=== PATIENT | female | born 1970 | race American Indian/Alaskan Native ===

== ENCOUNTER 2021-01-21 09:28 | Inpatient (IN) | payer OTHER ==
[2021-01-21] MEDS ORDERED: ACETAMINOPHEN 500 MG TAB PO ONE (10:58)
--- NOTE | 2021-01-21 11:00 | Emergency Department Report ---
Blank Doc - Documentation Documentation: 50-year-old female that presents with generalized weakness, body aches and hea dache. Fever tachycardia in triage. 1- This is a initial triage assessment/medical screening only. Full assessment and work-up will be completed once the patient is in proper hospital gown, ED bed and in a private room setting. This initial assessment/diagnostic orders/clinical plan/ treatment(s) is/are subject to change based on pt's health status, clinical progression and re-assessment by fellow clinical providers in the ED. Further treatment and workup at subsequent clinical providers discretion. Patient/guardians urged not to elope from ED as their condition may be serious if not clinically assessed and managed. 2-sepsis work-up initiated
[2021-01-21 12:07] LABS: Basophils % (Auto) 0.8 % (0.0-1.8); Eosinophils % (Auto) 0.2 % (0.0-4.3); Hematocrit 39.6 % (30.3-42.9); Hemoglobin 13.4 gm/dl (10.1-14.3); Lymphocytes % (Auto) 27.4 % (13.4-35.0); Mean Corpuscular HGB Conc 34 % (30-34); Mean Corpuscular Volume 80 fl (79-97); Monocytes # (Auto) 0.5 K/mm3 (0.0-0.8); Red Blood Count 4.92 M/mm3 (3.65-5.03); Red Cell Distribution Width 14.2 % (13.2-15.2)
[2021-01-21 12:45] LABS: Alanine Aminotransferase 42 units/L (7-56); Albumin 3.7 g/dL (3.9-5); BUN/Creatinine Ratio 14; Blood Urea Nitrogen 11 mg/dL (7-17); Calcium 9.5 mg/dL (8.4-10.2); Hemolysis Index 41
[2021-01-21 13:15] LABS: Platelet Count 39 K/mm3 (140-440)
--- NOTE | 2021-01-21 13:30 | XRay Report ---
CHEST 2 VIEWS INDICATION: sepsis. COMPARISON: FINDINGS: Support devices: None. Heart: Within normal limits. Lungs: No acute air space or interstitial disease. Pleura: No significant pleural effusion. No pneumothorax. Additional findings: None. IMPRESSION: 1. No acute findings. Signer Name: Angelo Enriquez MD Signed: 01/21/2021 1:25 PM Workstation Name: [id number]
--- NOTE | 2021-01-21 13:31 | Cat Scan Report ---
CT BRAIN: 01/21/2021 INDICATION / CLINICAL INFORMATION: headache. COMPARISON: None available. FINDINGS: BRAIN/INTRACRANIAL STRUCTURES: Unenhanced CT images of the brain were obtained. There is no evidence of acute abnormality. Ventricles and sulci are normal in size and shape. There is no evidence of acute ischemic injury, hemorrhage, or mass. There are no abnormal extra-axial fluid collections. EXTRACRANIAL STRUCTURES: Unremarkable. IMPRESSION: No acute abnormality. All CT scans at this location are performed using dose reduction to ALARA by means of automated expos ure control. Signer Name: Dave Riddle MD Signed: 01/21/2021 1:27 PM Workstation Name: [id number]
[2021-01-22] MEDS ORDERED: SODIUM CHLORIDE 0.9% 1000 ML 1,000 ML IV ONE (02:53)
--- NOTE | 2021-01-22 02:57 | Emergency Department Report ---
ED General Adult HPI - General Chief complaint: Weakness Stated complaint: SICK Time Seen by Provider: 01/21/21 10:09 Source: patient Mode of arrival: Ambulatory Limitations: No Limitations - History of Present Illness Initial comments: 50-year-old female patient with history of hypertension presents to emergency department with complaints of headache, myalgias, dizziness, and generalized weakness starting five days ago. Patient states she recently traveled to the [facility] [place] from [place], arriving in [place] on January 11. Symptoms did not begin until after her arrival. Patient has been compliant with her antihypertensive medication regimen. States she completed a partial malaria vaccine series at some point prior to departing for the [facility]. No known sick contacts. No known recent insect envenomations. Denies syncope, seizure, nausea, vomiting, diarrhea, abdominal pain, rash, abnormal bleeding/bruising. Denies all other complaints at this time. Severity scale (0 -10): 2 - Related Data Allergies Allergy/AdvReac Type Severity Reaction Status Date / Time Unable to Assess Allergy Unverified 01/21/21 10:01 ED Review of Systems ROS: Stated complaint: SICK Other details as noted in HPI Other: GENERAL: Positive for decreased appetite, fatigue, generalized weakness. ENT: Negative for ear pain, difficulty hearing, sore throat, nasal congestion, epistaxis. CARDIOVASCULAR: Negative for chest pain, palpitations, lower extremity swelling. PULMONARY: Negative for cough, dyspnea, wheezing, orthopnea, cyanosis. GASTROINTESTINAL: Negative for abdominal pain, nausea, vomiting, diarrhea, constipation. MUSCULOSKELETAL: Positive for myalgias. NEUROLOGICAL: Positive for headache and dizziness. INTEGUMENTARY: Negative for erythema, rash, diaphoresis, laceration, ecchymosis. HEMATOLOGICAL: Negative for hemoptysis, hematemesis, hematochezia, hematuria. PSYCHIATRIC: Negative for hallucinations, suicidal ideation, homicidal ideation, anxiety, depression. ED Past Medical Hx - Past Medical History Previous Medical History?: Yes Hx Hypertension: Yes - Surgical History Past Surgical History?: No ED Physical Exam - General Limitations: No Limitations - Other Other exam information: General: Awake and alert. No acute distress. Appears fatigued. Head: Atraumatic, normocephalic. Eyes: EOMI. Pupils are equal and round. Normal sclera and conjunctiva. ENT: Oral mucosa is moist. Normal pharyngeal exam. Neck: Supple. No lymphadenopathy. Pulmonary: No respiratory distress. Clear to auscultation bilaterally. Cardiac: Tachycardic. Pulses are palpable and equal bilaterally. No lower extremity cyanosis or edema. Skin: Warm and dry. No rashes. Abdomen: Soft, non-tender, non-protuberant. No guarding, rigidity, or rebound. Bowel sounds are normal. No organomegaly or masses noted. Back: Normal alignment. No CVA tenderness. Extremities: Symmetrical. Full range of motion intact. Neurological: Alert and oriented, appropriately interactive, no focal deficits. Psych: Cooperative. Appropriate mood and affect. Speech is evenly metered. Thoughts are logically construed. ED Course Vital Signs 01/21/21 01/22/21 10:00 05:07 Temperature 100.0 F H 103.1 F H Pulse Rate 114 H 102 H Respiratory 14 18 Rate Blood Pressure 108/80 Blood Pressure 148/73 [Left] O2 Sat by Pulse 99 98 Oximetry ED Medical Decision Making - Lab Data Result diagrams: 01/21/21 11:16 01/21/21 11:16 - EKG Data 01/22/21 04:32 EKG shows sinus tachycardia with a ventricular rate of 108 bpm. Normal axis. Normal [place] interval. Normal QT interval. Good R wave progression. No ST segment changes. Over read by attending emergency physician, who agrees with this interpretation. - Medical Decision Making Differential diagnosis including but not limited to: dehydration, electrolyte abnormality, hypoglycemia, anemia, pneumonia, malaria, sepsis, dengue fever, Ebola virus, Q fever, Zika virus, rickettsial disease, mononucleosis On reevaluation, patient continues to exhibit fever and tachycardia. Tylenol ordered. IV fluids in progress. Labs significant for thrombocytopenia, le ukopenia, and hyponatremia. Schistocytes detected on peripheral blood smear. Blood parasite smear is pending. Urine is very dark in appearance; IV Rocephin administered due to presence of pyuria and leukocyte esterase. Blood and urine culture pending. Lactic acid and coagulation panel within normal limits. LDH and ESR elevated. CXR and CT head negative. Broad infectious disease differential must be considered in this febrile tachycardic patient due to her recent travel history and unexplained laboratory abnormalities. Patient will benefit from further evaluation and specialist consultation (i.e. infectious disease, hematology) on an inpatient basis. Case discussed with Dr. Islas, hospitalist, who agrees to admit and requests infectious disease consultation, which was subsequently initiated. Critical care attestation.: If time is entered above; I have spent that time in minutes in the direct care of this critically ill patient, excluding procedure time. ED Disposition Clinical Impression: Thrombocytopenia, Schistocytosis, Febrile illness Disposition: OP ADMIT IP TO THIS HOSP Is pt being admited?: Yes Condition: Serious Time of Disposition: 06:45
[2021-01-22 03:18] LABS: Bilirubin,Urine NEG (Negative); Blood,Urine SM (Negative); Color,Urine Amber (Yellow); Hyaline Casts,Urine 1 /LPF; Mucus,Urine 2+ /HPF
[2021-01-22] MEDS ORDERED: ACETAMINOPHEN 500 MG TAB PO ONE (03:44)
[2021-01-22 03:51] LABS: INR 1.13 (0.87-1.13)
[2021-01-22 03:52] LABS: Partial Thromboplastin Time 29.2 Sec. (24.2-36.6)
[2021-01-22] MEDS ORDERED: LIDOCAINE-MPF (1%) 10 MG/1 ML VIAL 5 ML INFILTRATI ONE (05:19)
[2021-01-22] MEDS ORDERED: cefTRIAXone/NS 1 GM/50 ML 1 GM/50 ML BAG IV ONE (06:00)
[2021-01-22 06:39] LABS: Erythrocyte Sedimentation Rate 46 mm/Hr (0-20)
--- NOTE | 2021-01-22 08:06 | History and Physical Report ---
History of Present Illness Date of examination: 01/22/21 Date of admission: 01/22/21 06:51 Chief complaint: High fever, generalized weakness, headache and dizziness for the last 5 days History of present illness: 50-year-old morbidly obese -[place] female with significant past medical history of hypertension presented to the emergency room with high fever headache dizziness myalgias and generalized weakness 5 days duration . patient [place] from [place] arrived in [place] on January 11. Asymptomatic prior to January 11 noticed generalized weakness fever headache dizziness and body pains . Symptoms were worse since last night, presented to the emergency room this morning to the emergency room for further evaluation and management. Patient's temperature was 103F, initial evaluation is consistent with sepsis. Patient gives history of not completing malaria vaccine series prior to leaving [facility]. Chest x-ray negative for acute abnormalities CT head, no acute findings blood smears positive for schistocytes and mononucleosis HIV test negative. Work-up is consistent with hyponatremia thrombocytopenia hyperglycemia and monocytosis Mononucleosis screen is negative.Patient denies nausea vomiting or abdominal pain. Denies chest pain or shortness of breath Denies any sick contacts. Past History Past Medical History: hypertension. denies: diabetes Past Surgical History: No surgical history Social history: denies: smoking, alcohol abuse, prescription drug abuse Family history: no significant family history Medications and Allergies Allergies Allergy/AdvReac Type Severity Reaction Status Date / Time chloroquine Allergy Itching Verified 01/22/21 14:35 Home Medications Medication Instructions Recorded Confirmed Last Taken Type amLODIPine 5 mg PO DAILY 01/22/21 01/22/21 01/21/21 History Review of Systems Constitutional: fever, chills, weakness, no weight loss, no weight gain Ears, nose, mouth and throat: no nasal congestion, no nasal discharge Cardiovascular: no chest pain, no orthopnea Respiratory: no cough, no shortness of breath Gastrointestinal: no abdominal pain, no nausea, no vomiting Genitourinary Female: no dysuria, no hematuria Musculoskeletal: no myalgias, no arthritis Integumentary: no rash, no lesions Neurological: weakness, headaches, no numbness Psychiatric: no anxiety, no depression Endocrine: no cold intolerance, no heat intolerance Hematologic/Lymphatic: no easy bruising, no easy bleeding Allergic/Immunologic: no urticaria, no allergic rhinitis Exam - Constitutional Vitals: Temp Pulse Resp BP Pulse Ox 103.1 F H 102 H 18 148/73 98 01/22/21 05:07 01/22/21 05:07 01/22/21 05:07 01/22/21 05:07 01/22/21 05:07 General appearance: Present: no acute distress, well-nourished, obese (Morbidly obese) - EENT Eyes: Present: PERRL, EOM intact - Neck Neck: Present: supple, normal ROM - Respiratory Respiratory effort: normal Respiratory: bilateral: diminished, negative: rales, rhonchi, wheezing - Cardiovascular Rhythm: regular Heart Sounds: Present: S1 & S2 - Extremities Extremities: no ischemia, No edema - Abdominal General gastrointestinal: Present: soft, non-tender, non-distended, normal bowel sounds - Integumentary Integumentary: Present: clear, warm - Musculoskeletal Musculoskeletal: strength equal bilaterally, generalized weakness - Psychiatric Psychiatric: appropriate mood/affect, cooperative - Neurologic Neurologic: CNII-XII intact, moves all extremities HEART Score - HEART Score Troponin: Troponin T < 0.010 ng/mL (0.00-0.029) 01/21/21 11:16 Results - Labs CBC & Chem 7: 01/21/21 11:16 01/21/21 11:16 Labs: Abnormal lab results 01/21/21 01/21/21 01/22/21 Range/Units 11:16 11:16 03:03 WBC 3.7 L (4.5-11.0) K/mm3 MCH 27 L (28-32) pg Plt Count 39 L (140-440) K/mm3 [place] % (Auto) 13.0 H (0.0-7.3) % Lymph # (Auto) 1.0 L (1.2-5.4) K/mm3 PT (12.2-14.9) Sec. Sodium 130 L (137-145) mmol/L Chloride 88.4 L (98-107) mmol/L Carbon Dioxide 34 H (22-30) mmol/L Glucose 153 H (65-100) mg/dL Total Bilirubin 1.40 H (0.1-1.2) mg/dL Lactate Dehydrogenase (91-180) units/L Albumin 3.7 L (3.9-5) g/dL Urine WBC (Auto) 11.0 H (0.0-6.0) /HPF 01/22/21 01/22/21 Range/Units 03:10 05:41 WBC (4.5-11.0) K/mm3 MCH (28-32) pg Plt Count (140-440) K/mm3 [place] % (Auto) (0.0-7.3) % Lymph # (Auto) (1.2-5.4) K/mm3 PT 15.1 H (12.2-14.9) Sec. Sodium (137-145) mmol/L Chloride (98-107) mmol/L Carbon Dioxide (22-30) mmol/L Glucose (65-100) mg/dL Total Bilirubin (0.1-1.2) mg/dL Lactate Dehydrogenase 809 H (91-180) units/L Albumin (3.9-5) g/dL Urine WBC (Auto) (0.0-6.0) /HPF Assessment and Plan [place] test; negative HIV 1 and 2; negative Schistocytes rare Cultures; blood; Cultures; urine; --Febrile illness; Antipyretics, IV fluids, cultures Supportive care Patient came [place] the [place] from [facility] Rule out malaria, smear sent ID consulted --Possible malaria; Follow malaria parasite smear ID recommend Malarone Supportive care --PUI; High suspicion for COVID-19 Isolation contact and droplet Rizo PCR test requested --Leukopenia; Baseline unknown, closely monitor white count Treat the underlying cause --Thrombocytopenia; Unknown baseline level. Probably due to viral Versus parasitic infection Closely monitor platelets --Monocytosis; Monocytes; 13 normal 0-7 Possible viral, parasitic infection Closely monitor --Hyponatremia; Replenished with normal saline, closely monitor electrolytes --Hyperglycemia; closely monitor blood sugars Check A1c. Sliding scale coverage if sugars are high --Possible UTI; Positive urine analysis Empiric antibiotics with Rocephin Blood and urine cultures --DVT prophylaxis; Lovenox --Morbid obesity; BMI 40.4 Diet modification exercise as tolerated and weight reduction When medically stable --Full CODE STATUS We will closely monitor the patient and adjust management as needed Follow ID evaluation and recommendations Plan of care reviewed with the patient and her nurse
[2021-01-22] MEDS ORDERED: hydrALAZINE 20 MG/1 ML INJ IV PRN (08:23)
--- NOTE | 2021-01-22 09:31 | Consultation ---
History of Present Illness - Reason for Consult Consult date: 01/22/21 - History of Present Illness 50 yo F PMHx HTN presented to the hospital complaining of headache, myalgias, and dizziness. This began approximately 5 days prior to admission. She does report that she arrived in the from [place] on January 11. Of note, she reports that she received an incomplete malaria vaccine series prior to [place] for the [place]. Febrile to 103.1, white count 3.7. Negative for HIV, schistocytes, and mo nonucleosis. She is hyperglycemic and hyponatremic. She is thrombocytopenic. Blood cultures pending. Imaging personally reviewed: CXR: No acute pneumonia. Review of Systems: Bold if positive, otherwise negative General: fevers, chills, rigors HEENT: visual disturbance, diplopia, eye pain Respiratory: cough, sputum, hemoptysis, shortness of breath Cardiovascular: chest pain, syncope Gastrointestinal: nausea, vomiting, diarrhea, abdominal pain Genitourinary: dysuria, hematuria, flank pain Musculoskeletal: neck pain, back pain, joint pain, edema Neurologic: headaches, seizures Hematologic: easy bruising or bleeding Endocrine: night sweats, acute weight loss Skin: rash, jaundice, redness Psychiatric: suicidal, homicidal ideation Medications and Allergies Allergies Allergy/AdvReac Type Severity Reaction Status Date / Time Unable to Assess Allergy Unverified 01/21/21 10:01 Active Meds: Active Medications Acetaminophen (Acetaminophen 325 Mg Tab) 650 mg PO Q4H PRN PRN Reason: Pain, Mild (1-3) Hydralazine HCl (Hydralazine 20 Mg/1 Ml Inj) 10 mg IV Q4HR PRN PRN Reason: Hypertension Sodium Chloride (Nacl 0.9% 1000 Ml) 1,000 mls @ 100 mls/hr IV DIRECT WINIFRED Ceftriaxone Sodium (Rocephin/Ns 1 Gm/50 Ml) 1 gm in 50 mls @ 100 mls/hr IV Q24HR WINIFRED; Protocol Pantoprazole Sodium (Pantoprazole 40 Mg Inj) 40 mg IV QDAY WINIFRED Last Admin: 01/22/21 09:23 Dose: 40 mg Documented by: Physical Examination - Physical Exam Narrative exam: Physical exam deferred to reduce risk of transmission of COVID-19. Please refer to primary team's note. - Constitutional Vitals: Vital Signs Temp Pulse Resp BP Pulse Ox 99.9 F H 102 H 18 148/73 98 01/22/21 08:20 01/22/21 05:07 01/22/21 05:07 01/22/21 05:07 01/22/21 05:07 Temperature -Last 24 Hours Temperature 99.9 F Temperature 103.1 F Temperature 100.0 F Results - Labs CBC & Chem 7: 01/21/21 11:16 01/21/21 11:16 Labs: Abnormal lab results 01/21/21 01/21/21 01/22/21 Range/Units 11:16 11:16 03:03 WBC 3.7 L (4.5-11.0) K/mm3 MCH 27 L (28-32) pg Plt Count 39 L (140-440) K/mm3 [place] % (Auto) 13.0 H (0.0-7.3) % Lymph # (Auto) 1.0 L (1.2-5.4) K/mm3 PT (12.2-14.9) Sec. Sodium 130 L (137-145) mmol/L Chloride 88.4 L (98-107) mmol/L Carbon Dioxide 34 H (22-30) mmol/L Glucose 153 H (65-100) mg/dL Total Bilirubin 1.40 H (0.1-1.2) mg/dL Lactate Dehydrogenase (91-180) units/L Albumin 3.7 L (3.9-5) g/dL Urine WBC (Auto) 11.0 H (0.0-6.0) /HPF 01/22/21 01/22/21 Range/Units 03:10 05:41 WBC (4.5-11.0) K/mm3 MCH (28-32) pg Plt Count (140-440) K/mm3 [place] % (Auto) (0.0-7.3) % Lymph # (Auto) (1.2-5.4) K/mm3 PT 15.1 H (12.2-14.9) Sec. Sodium (137-145) mmol/L Chloride (98-107) mmol/L Carbon Dioxide (22-30) mmol/L Glucose (65-100) mg/dL Total Bilirubin (0.1-1.2) mg/dL Lactate Dehydrogenase 809 H (91-180) units/L Albumin (3.9-5) g/dL Urine WBC (Auto) (0.0-6.0) /HPF Assessment and Plan Cultures: Blood culture01/22/2021 pending HIV: negative COVID PCR: pending Blood parasite smear: pending A/P: 50 yo F PMHx HTN, recently arrived from [place] admitted with sepsis possibly secondary to malaria. #Acute sepsis: with fevers, tachycardia. Most likely secondary to malaria given elevated bilirubin, thrombocytopenia. Patient started but did not complete a malaria vaccination trial in [place]. #Thrombocytopenia: likely secondary to sepsis and presumed malaria. Recs: -Follow up COVID PCR, though low suspicion as no pneumonia -Follow up blood aparasite smear for malaria -Will empirically start malarone given high suspicion -Continue empiric ceftriaxone for now, stopped azithromycin. Thank you for the consult, we will continue to follow. MD Abimael Arriola [facility] O: [phone] F: [phone]
[2021-01-22] MEDS ORDERED: PANTOPRAZOLE 40 MG INJ IV SCH (10:00)
[2021-01-22] MEDS: ATOVAQUONE/PROGUANIL TAB PO SCH (14:03)
[2021-01-22] MEDS ORDERED: ZOLPIDEM 5 MG TAB PO PRN (16:13)
[2021-01-22] MEDS: SODIUM CHLORIDE 0.9% 1000 ML 1,000 ML IV SCH (18:47)
[2021-01-22] MEDS: ACETAMINOPHEN 325 MG TAB PO PRN (18:57)
[2021-01-22] MEDS: ENOXAPARIN 40 MG/0.4 ML INJ SUB-Q SCH (21:55)
[2021-01-23] MEDS: SODIUM CHLORIDE 0.9% 1000 ML 1,000 ML IV SCH (08:44)
[2021-01-23] MEDS: PANTOPRAZOLE 40 MG TAB PO SCH (09:36)
[2021-01-23] MEDS ORDERED: cefTRIAXone/NS 1 GM/50 ML 1 GM/50 ML BAG IV SCH (10:00)
--- NOTE | 2021-01-23 10:04 | Progress Note ---
Assessment and Plan Assessment and plan: [place] test; negative HIV 1 and 2; negative Schistocytes rare Cultures; blood; Cultures; urine; --Febrile illness; Antipyretics, IV fluids, cultures Supportive care Patient came from out of the country from [place] Rule out malaria, smear sent ID consulted --Possible malaria; Follow malaria parasite smear ID recommend Malarone for 3 days Supportive care --PUI; High suspicion for COVID-19 Isolation contact and droplet Rizo PCR test pending --Leukopenia; worsening WBC 3.7-3.0 --Worsening thrombocytopenia; Unknown baseline level. Probably due to viral Versus parasitic infection Closely monitor platelets --Monocytosis; Monocytes; 13 normal 0-7 Possible viral, parasitic infection Closely monitor --Hyponatremia; Replenished with normal saline, closely monitor electrolytes --Hyperglycemia; closely monitor blood sugars Check A1c. Sliding scale coverage if sugars are high --Possible UTI; Positive urine analysis Empiric antibiotics with Rocephin Blood and urine cultures --DVT prophylaxis; Lovenox --Morbid obesity; BMI 40.4 Diet modification exercise as tolerated and weight reduction When medically stable --Full CODE STATUS We will closely monitor the patient and adjust management as needed ID recommendations noted and appreciated Plan of care reviewed with the patient and her nurse 01/23/2021; Patient remains febrile, T-max last 24 hours 103 F Continue Malarone for total 3 days per ID Follow cultures Follow rizo PCR test History Interval history: I have seen and examined the patient at the bedside Patient's chart and medications reviewed Patient is afebrile this morning however, T-max last 24 hours is 103 F Patient feels slightly better no new complaints Vital signs reviewed Hospitalist Physical - Constitutional Vitals: Temp Pulse Resp BP Pulse Ox 98.8 F 105 H 16 118/80 94 01/23/21 05:07 01/23/21 05:07 01/23/21 05:07 01/23/21 05:07 01/23/21 05:07 General appearance: Present: no acute distress, well-nourished, obese (Morbidly obese), other (Afebrile now/T-max last 24 hours 103 F) - EENT Eyes: Present: PERRL, EOM intact - Neck Neck: Present: supple, normal ROM - Respiratory Respiratory effort: normal Respiratory: bilateral: diminished (That was for maintenance), negative: rales, rhonchi, wheezing (Stated that is what I was talking about) - Cardiovascular Rhythm: regular Heart Sounds: Present: S1 & S2 - Extremities Extremities: no ischemia, No edema - Abdominal General gastrointestinal: soft, non-tender, non-distended, normal bowel sounds - Integumentary Integumentary: Present: clear, warm - Psychiatric Psychiatric: appropriate mood/affect, cooperative - Neurologic Neurologic: moves all extremities HEART Score - HEART Score Troponin: Troponin T < 0.010 ng/mL (0.00-0.029) 01/21/21 11:16 Results - Labs CBC & Chem 7: 01/23/21 10:31 01/21/21 11:16 Labs: Laboratory Last Values WBC 3.7 K/mm3 (4.5-11.0) L 01/21/21 11:16 RBC 4.92 M/mm3 (3.65-5.03) 01/21/21 11:16 Hgb 13.4 gm/dl (10.1-14.3) 01/21/21 11:16 Hct 39.6 % (30.3-42.9) 01/21/21 11:16 MCV 80 fl (79-97) 01/21/21 11:16 MCH 27 pg (28-32) L 01/21/21 11:16 MCHC 34 % (30-34) 01/21/21 11:16 RDW 14.2 % (13.2-15.2) 01/21/21 11:16 Plt Count 39 K/mm3 (140-440) L 01/21/21 11:16 Lymph % (Auto) 27.4 % (13.4-35.0) 01/21/21 11:16 [place] % (Auto) 13.0 % (0.0-7.3) H 01/21/21 11:16 Eos % (Auto) 0.2 % (0.0-4.3) 01/21/21 11:16 Baso % (Auto) 0.8 % (0.0-1.8) 01/21/21 11:16 Lymph # (Auto) 1.0 K/mm3 (1.2-5.4) L 01/21/21 11:16 [place] # (Auto) 0.5 K/mm3 (0.0-0.8) 01/21/21 11:16 Eos # (Auto) 0.0 K/mm3 (0.0-0.4) 01/21/21 11:16 Baso # (Auto) 0.0 K/mm3 (0.0-0.1) 01/21/21 11:16 Seg Neutrophils % 58.6 % (40.0-70.0) 01/21/21 11:16 Seg Neutrophils # 2.2 K/mm3 (1.8-7.7) 01/21/21 11:16 ESR 46 mm/Hr (0-20) 01/22/21 05:41 PT 15.1 Sec. (12.2-14.9) H 01/22/21 03:10 INR 1.13 (0.87-1.13) 01/22/21 03:10 APTT 29.2 Sec. (24.2-36.6) 01/22/21 03:10 Sodium 130 mmol/L (137-145) L 01/21/21 11:16 Potassium 3.6 mmol/L (3.6-5.0) 01/21/21 11:16 Chloride 88.4 mmol/L (98-107) L 01/21/21 11:16 Carbon Dioxide 34 mmol/L (22-30) H 01/21/21 11:16 Anion Gap 11 mmol/L 01/21/21 11:16 BUN 11 mg/dL (7-17) 01/21/21 11:16 Creatinine 0.8 mg/dL (0.6-1.2) 01/21/21 11:16 Estimated GFR > 60 ml/min 01/21/21 11:16 BUN/Creatinine Ratio 14 % 01/21/21 11:16 Glucose 153 mg/dL (65-100) H 01/21/21 11:16 Lactic Acid 1.80 mmol/L (0.7-2.0) 01/21/21 11:16 Calcium 9.5 mg/dL (8.4-10.2) 01/21/21 11:16 Magnesium 2.30 mg/dL (1.7-2.3) 01/21/21 11:16 Total Bilirubin 1.40 mg/dL (0.1-1.2) H 01/21/21 11:16 AST 40 units/L (5-40) 01/21/21 11:16 ALT 42 units/L (7-56) 01/21/21 11:16 Alkaline Phosphatase 67 units/L (35-129) 01/21/21 11:16 Lactate Dehydrogenase 809 units/L (91-180) H 01/22/21 05:41 Troponin T < 0.010 ng/mL (0.00-0.029) 01/21/21 11:16 Total Protein 7.9 g/dL (6.3-8.2) 01/21/21 11:16 Albumin 3.7 g/dL (3.9-5) L 01/21/21 11:16 Albumin/Globulin Ratio 0.9 % 01/21/21 11:16 Lipase 27 units/L (13-60) 01/21/21 11:16 HCG, Qual Negative (Negative) 01/21/21 11:16 Urine Color Chloe (Yellow) 01/22/21 03:03 Urine Turbidity Slightly-cloudy (Clear) 01/22/21 03:03 Urine pH 5.0 (5.0-7.0) 01/22/21 03:03 Ur Specific [place] 1.023 (1.003-1.030) 01/22/21 03:03 Urine Protein 100 mg/dl mg/dL (Negative) 01/22/21 03:03 Urine Glucose (UA) Neg mg/dL (Negative) 01/22/21 03:03 Urine Ketones Neg mg/dL (Negative) 01/22/21 03:03 Urine Blood Sm (Negative) 01/22/21 03:03 Urine Nitrite Neg (Negative) 01/22/21 03:03 Urine Bilirubin Neg (Negative) 01/22/21 03:03 Urine Urobilinogen 4.0 mg/dL (<2.0) 01/22/21 03:03 Ur Leukocyte Esterase Tr (Negative) 01/22/21 03:03 Urine WBC (Auto) 11.0 /HPF (0.0-6.0) H 01/22/21 03:03 Urine RBC (Auto) 4.0 /HPF (0.0-6.0) 01/22/21 03:03 U Epithel Cells (Auto) < 1.0 /HPF (0-13.0) 01/22/21 03:03 Hyaline Casts 1 /LPF 01/22/21 03:03 Urine Mucus 2+ /HPF 01/22/21 03:03 Coronavirus (PCR) Indeterminate (Negative) 01/22/21 Unknown Monoscreen Negative (Negative) 01/22/21 05:42 HIV 1&2 Antibody Rapid Non react (Non React) 01/22/21 05:41 HIV P24 Antigen Non react (Non React) 01/22/21 05:41 Schistocytes Smear Rare 01/22/21 03:10 Microbiology: Microbiology 01/21/21 11:16 Peripheral/Venous Blood Culture - Preliminary NO GROWTH AFTER 24 HOURS 01/21/21 11:16 Peripheral/Venous Blood Culture - Preliminary NO GROWTH AFTER 24 HOURS Garcia/IV: Voiding Method Toilet Active Medications - Current Medications Current Medications: Generic Name Dose Route Start Last Admin Trade Name Freq PRN Reason Stop Dose Admin Acetaminophen 650 mg 01/22/21 08:06 01/22/21 18:57 Acetaminophen 325 Mg Tab PO 650 mg Q4H PRN Administration Pain, Mild (1-3) Atovaquone/Proguanil 4 each 01/22/21 12:00 01/22/21 14:03 Atovaquone/Proguanil Tab PO 01/24/21 10:01 4 each DAILY WINIFRED Administration Enoxaparin Sodium 40 mg 01/22/21 22:00 01/22/21 21:55 Enoxaparin 40 Mg/0.4 Ml Inj SUB-Q 40 mg QDAY@2200 WINIFRED Administration Protocol Hydralazine HCl 10 mg 01/22/21 08:23 Hydralazine 20 Mg/1 Ml Inj IV Q4HR PRN Hypertension Sodium Chloride 1,000 mls @ 100 mls/hr 01/22/21 08:15 01/23/21 08:44 Nacl 0.9% 1000 Ml IV 100 mls/hr DIRECT WINIFRED Administration Ceftriaxone Sodium 1 gm in 50 mls @ 100 mls/hr 01/23/21 10:00 01/23/21 09:34 Rocephin/Ns 1 Gm/50 Ml IV 100 mls/hr Q24HR WINIFRED Administration Protocol Pantoprazole Sodium 40 mg 01/23/21 09:00 01/23/21 09:36 Pantoprazole 40 Mg Tab PO 40 mg QDAC WINIFRED Administration Zolpidem Tartrate 5 mg 01/22/21 16:13 Zolpidem 5 Mg Tab PO QHS PRN Sleep
[2021-01-23 11:04] LABS: Hematocrit 32.5 % (30.3-42.9); Mean Corpuscular HGB Conc 34 % (30-34); Mean Corpuscular Volume 80 fl (79-97); Red Blood Count 4.07 M/mm3 (3.65-5.03); Red Cell Distribution Width 14.5 % (13.2-15.2)
[2021-01-23 11:05] LABS: Platelet Count 24 K/mm3 (140-440)
[2021-01-23] MEDS: ATOVAQUONE/PROGUANIL TAB PO SCH (11:39)
--- NOTE | 2021-01-23 13:57 | Progress Note ---
Assessment and Plan Cultures: Blood culture01/22/2021 pending HIV: negative COVID PCR: pending Blood parasite smear: positive. A/P: 50 yo F PMHx HTN, recently arrived from [place] admitted with sepsis possibly secondary to malaria. #Acute sepsis: with fevers, tachycardia. Most likely secondary to malaria given elevated bilirubin, thrombocytopenia. Patient started but did not complete a malaria vaccination trial in [place]. #Malaria: smear positive, discussed with lab #Thrombocytopenia: likely secondary to sepsis and presumed malaria. Recs: -Smear sent out for parasite quantification and identification -Will empirically start malarone given high suspicion. Complete 3 days -Stopped ceftriaxone. Thank you for the consult, we will continue to follow. Pradeep Ritchie MD [facility] ([facility] O: [phone] F: [phone] Subjective Date of service: 01/23/21 Interval history: Afebrile, remains tachycardic. Leukopenic. Smear positive for malaria. Objective - Exam Narrative Exam: Physical exam deferred to reduce risk of transmission of COVID-19. Please refer to primary team's note. - Constitutional Vitals: Vital Signs Temp Pulse Resp BP Pulse Ox 98.8 F 105 H 20 118/80 94 01/23/21 05:07 01/23/21 05:07 01/23/21 10:00 01/23/21 05:07 01/23/21 10:00 Temperature -Last 24 Hours Temperature 98.8 F Temperature 99.1 F Temperature 103.0 F - Labs CBC & Chem 7: 01/23/21 10:31 01/21/21 11:16 Labs: Abnormal lab results 01/23/21 Range/Units 10:31 WBC 3.0 L (4.5-11.0) K/mm3 MCH 27 L (28-32) pg Plt Count 24 L (140-440) K/mm3
[2021-01-23] MEDS: ENOXAPARIN 40 MG/0.4 ML INJ SUB-Q SCH (21:09)
[2021-01-24] MEDS: SODIUM CHLORIDE 0.9% 1000 ML 1,000 ML IV SCH ×2 (02:23→11:27)
[2021-01-24 07:46] LABS: Hematocrit 30.1 % (30.3-42.9); Hemoglobin 10.1 gm/dl (10.1-14.3); Mean Corpuscular HGB Conc 34 % (30-34); Mean Corpuscular Volume 80 fl (79-97); Red Blood Count 3.76 M/mm3 (3.65-5.03); Red Cell Distribution Width 14.7 % (13.2-15.2)
[2021-01-24 08:13] LABS: Blood Urea Nitrogen 8 mg/dL (7-17); Hemolysis Index 2
--- NOTE | 2021-01-24 09:09 | Progress Note ---
Assessment and Plan Assessment and plan: [place] test; negative HIV 1 and 2; negative Schistocytes rare Cultures; blood; Cultures; urine; --Hypokalemia; replenish per protocol with oral KCl 40 mEq p.o. every 4 hours 2 doses Follow electrolytes, magnesium normal level --Febrile illness; afebrile last 24 to 36 hours Antipyretics, IV fluids, cultures negative to date Secondary to malaria infection --Possible malaria; Smear positive, repeat smear to monitor improvement ID recommend Malarone for 3 days Third dose today .supportive care --PUI; High suspicion for COVID-19 Isolation contact and droplet Rizo PCR test indeterminate --Leukopenia; worsening WBC 3.7-3.0-2.7 --Worsening thrombocytopenia; Unknown baseline level. Probably due to viral Versus parasitic infection, Closely monitor platelets Consider hematology consult --Monocytosis; Monocytes; 13 normal 0-7 Probably due to viral, parasitic infection Closely monitor --Hyponatremia; trending up sodium 130-136 Replenished with normal saline, closely monitor electrolytes --Hyperglycemia; blood sugars in the normal range --Possible UTI; cultures negative Rocephin discontinued --DVT prophylaxis; SCD No pharmacologic anticoagulation in view of thrombocytopenia --Morbid obesity; BMI 40.4 Diet modification exercise as tolerated and weight reduction When medically stable --Full CODE STATUS We will closely monitor the patient and adjust management as needed ID recommendations noted and appreciated Plan of care reviewed with the patient and her nurse 01/23/2021; Patient remains febrile, T-max last 24 hours 103 F Continue Malarone for total 3 days per ID Follow cultures Follow rizo PCR test 01/24/2021; patient is afebrile last 24 to 36 hours Patient is on Malarone for total 3 days, third dose today Worsening leukopenia and thrombocytopenia Will DC Lovenox in view of thrombocytopenia Closely monitor, follow ID recommendations History Interval history: I have seen and examined the patient at the bedside this morning Patient's chart and medications reviewed Patient feels slightly better, wants to go home Vital signs noted Hospitalist Physical - Constitutional Vitals: Temp Pulse Resp BP Pulse Ox 99.6 F 88 18 106/72 100 01/24/21 05:12 01/24/21 05:12 01/24/21 05:12 01/24/21 05:12 01/24/21 05:12 General appearance: Present: no acute distress, well-nourished, obese (Morbidly obese), other (Afebrile ) - EENT Eyes: Present: PERRL, EOM intact - Neck Neck: Present: supple, normal ROM - Respiratory Respiratory effort: normal Respiratory: bilateral: diminished, negative: rales, rhonchi, wheezing - Cardiovascular Rhythm: regular Heart Sounds: Present: S1 & S2 - Extremities Extremities: no ischemia, No edema - Abdominal General gastrointestinal: soft, non-tender, non-distended, normal bowel sounds - Integumentary Integumentary: Present: clear, warm - Psychiatric Psychiatric: appropriate mood/affect, cooperative - Neurologic Neurologic: CNII-XII intact, moves all extremities HEART Score - HEART Score Troponin: Troponin T < 0.010 ng/mL (0.00-0.029) 01/21/21 11:16 Results - Labs CBC & Chem 7: 01/24/21 06:45 01/24/21 06:45 Labs: Laboratory Last Values WBC 2.7 K/mm3 (4.5-11.0) L 01/24/21 06:45 RBC 3.76 M/mm3 (3.65-5.03) 01/24/21 06:45 Hgb 10.1 gm/dl (10.1-14.3) 01/24/21 06:45 Hct 30.1 % (30.3-42.9) L 01/24/21 06:45 MCV 80 fl (79-97) 01/24/21 06:45 MCH 27 pg (28-32) L 01/24/21 06:45 MCHC 34 % (30-34) 01/24/21 06:45 RDW 14.7 % (13.2-15.2) 01/24/21 06:45 Plt Count 24 K/mm3 (140-440) L 01/23/21 10:31 Lymph % (Auto) 27.4 % (13.4-35.0) 01/21/21 11:16 [place] % (Auto) 13.0 % (0.0-7.3) H 01/21/21 11:16 Eos % (Auto) 0.2 % (0.0-4.3) 01/21/21 11:16 Baso % (Auto) 0.8 % (0.0-1.8) 01/21/21 11:16 Lymph # (Auto) 1.0 K/mm3 (1.2-5.4) L 01/21/21 11:16 [place] # (Auto) 0.5 K/mm3 (0.0-0.8) 01/21/21 11:16 Eos # (Auto) 0.0 K/mm3 (0.0-0.4) 01/21/21 11:16 Baso # (Auto) 0.0 K/mm3 (0.0-0.1) 01/21/21 11:16 Seg Neutrophils % 58.6 % (40.0-70.0) 01/21/21 11:16 Seg Neutrophils # 2.2 K/mm3 (1.8-7.7) 01/21/21 11:16 ESR 46 mm/Hr (0-20) 01/22/21 05:41 PT 15.1 Sec. (12.2-14.9) H 01/22/21 03:10 INR 1.13 (0.87-1.13) 01/22/21 03:10 APTT 29.2 Sec. (24.2-36.6) 01/22/21 03:10 Sodium 136 mmol/L (137-145) L 01/24/21 06:45 Potassium 3.0 mmol/L (3.6-5.0) L 01/24/21 06:45 Chloride 97.8 mmol/L (98-107) L 01/24/21 06:45 Carbon Dioxide 31 mmol/L (22-30) H 01/24/21 06:45 Anion Gap 10 mmol/L 01/24/21 06:45 BUN 8 mg/dL (7-17) 01/24/21 06:45 Creatinine 0.8 mg/dL (0.6-1.2) 01/21/21 11:16 Estimated GFR > 60 ml/min 01/21/21 11:16 BUN/Creatinine Ratio 14 % 01/21/21 11:16 Glucose 74 mg/dL (65-100) 01/24/21 06:45 Lactic Acid 1.80 mmol/L (0.7-2.0) 01/21/21 11:16 Calcium 9.5 mg/dL (8.4-10.2) 01/21/21 11:16 Magnesium 2.20 mg/dL (1.7-2.3) 01/24/21 06:45 Total Bilirubin 1.40 mg/dL (0.1-1.2) H 01/21/21 11:16 AST 40 units/L (5-40) 01/21/21 11:16 ALT 42 units/L (7-56) 01/21/21 11:16 Alkaline Phosphatase 67 units/L (35-129) 01/21/21 11:16 Lactate Dehydrogenase 809 units/L (91-180) H 01/22/21 05:41 Troponin T < 0.010 ng/mL (0.00-0.029) 01/21/21 11:16 Total Protein 7.9 g/dL (6.3-8.2) 01/21/21 11:16 Albumin 3.7 g/dL (3.9-5) L 01/21/21 11:16 Albumin/Globulin Ratio 0.9 % 01/21/21 11:16 Lipase 27 units/L (13-60) 01/21/21 11:16 HCG, Qual Negative (Negative) 01/21/21 11:16 Urine Color Chloe (Yellow) 01/22/21 03:03 Urine Turbidity Slightly-cloudy (Clear) 01/22/21 03:03 Urine pH 5.0 (5.0-7.0) 01/22/21 03:03 Ur Specific [place] 1.023 (1.003-1.030) 01/22/21 03:03 Urine Protein 100 mg/dl mg/dL (Negative) 01/22/21 03:03 Urine Glucose (UA) Neg mg/dL (Negative) 01/22/21 03:03 Urine Ketones Neg mg/dL (Negative) 01/22/21 03:03 Urine Blood Sm (Negative) 01/22/21 03:03 Urine Nitrite Neg (Negative) 01/22/21 03:03 Urine Bilirubin Neg (Negative) 01/22/21 03:03 Urine Urobilinogen 4.0 mg/dL (<2.0) 01/22/21 03:03 Ur Leukocyte Esterase Tr (Negative) 01/22/21 03:03 Urine WBC (Auto) 11.0 /HPF (0.0-6.0) H 01/22/21 03:03 Urine RBC (Auto) 4.0 /HPF (0.0-6.0) 01/22/21 03:03 U Epithel Cells (Auto) < 1.0 /HPF (0-13.0) 01/22/21 03:03 Hyaline Casts 1 /LPF 01/22/21 03:03 Urine Mucus 2+ /HPF 01/22/21 03:03 Coronavirus (PCR) Indeterminate (Negative) 01/22/21 Unknown Monoscreen Negative (Negative) 01/22/21 05:42 HIV 1&2 Antibody Rapid Non react (Non React) 01/22/21 05:41 HIV P24 Antigen Non react (Non React) 01/22/21 05:41 Schistocytes Smear Rare 01/22/21 03:10 Microbiology: Microbiology 01/21/21 11:16 Peripheral/Venous Blood Culture - Preliminary NO GROWTH AFTER 48 HOURS 01/21/21 11:16 Peripheral/Venous Blood Culture - Preliminary NO GROWTH AFTER 48 HOURS 01/22/21 03:03 Urine,Clean Catch Urine Culture - Preliminary Garcia/IV: Voiding Method Toilet Active Medications - Current Medications Current Medications: Generic Name Dose Route Start Last Admin Trade Name Freq PRN Reason Stop Dose Admin Acetaminophen 650 mg 01/22/21 08:06 01/22/21 18:57 Acetaminophen 325 Mg Tab PO 650 mg Q4H PRN Administration Pain, Mild (1-3) Amlodipine Besylate 5 mg 01/24/21 10:00 Amlodipine 5 Mg Tab PO QDAY WINIFRED Atovaquone/Proguanil 4 each 01/22/21 12:00 01/23/21 11:39 Atovaquone/Proguanil Tab PO 01/24/21 10:01 4 each DAILY WINIFRED Administration Enoxaparin Sodium 40 mg 01/22/21 22:00 01/23/21 21:09 Enoxaparin 40 Mg/0.4 Ml Inj SUB-Q 40 mg QDAY@2200 WINIFRED Administration Protocol Hydralazine HCl 10 mg 01/22/21 08:23 Hydralazine 20 Mg/1 Ml Inj IV Q4HR PRN Hypertension Sodium Chloride 1,000 mls @ 100 mls/hr 01/22/21 08:15 01/24/21 02:23 Nacl 0.9% 1000 Ml IV 100 mls/hr DIRECT WINIFRED Administration Losartan Potassium 50 mg 01/24/21 10:00 Losartan 50 Mg Tab PO QDAY WINIFRED Pantoprazole Sodium 40 mg 06/16/21 09:00 01/23/21 09:36 Pantoprazole 40 Mg Tab PO 40 mg QDAC WINIFRED Administration Zolpidem Tartrate 5 mg 01/22/21 16:13 Zolpidem 5 Mg Tab PO QHS PRN Sleep
[2021-01-24 09:10] LABS: BUN/Creatinine Ratio 13
[2021-01-24] MEDS: LOSARTAN 50 MG TAB PO SCH (11:06)
[2021-01-24] MEDS: amLODIPine 5 MG TAB PO SCH (11:06)
[2021-01-24] MEDS: ATOVAQUONE/PROGUANIL TAB PO SCH (11:07)
[2021-01-24] MEDS: PANTOPRAZOLE 40 MG TAB PO SCH (11:07)
[2021-01-24] MEDS ORDERED: POTASSIUM CHLORIDE ER 20 MEQ TAB PO NR ×2 (13:00→16:00)
--- NOTE | 2021-01-24 13:23 | Progress Note ---
Assessment and Plan Cultures: Blood culture01/22/2021 pending HIV: negative COVID PCR: pending Blood parasite smear: positive. A/P: 50 yo F PMHx HTN, recently arrived from [place] admitted with sepsis possibly secondary to malaria. #Acute sepsis: with fevers, tachycardia. Most likely secondary to malaria given elevated bilirubin, thrombocytopenia. Patient started but did not complete a malaria vaccination trial in [place]. 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 Recs: -Smear sent out for parasite quantification and identification -Will empirically start malarone given high suspicion. Complete 3 days -repeat smear today to ensure declining parasitemia. -Follow up repeat platelets -Repeat CMP in AM. Thank you for the consult, we will continue to follow. Pradeep Ritchie MD [facility] ([facility] O: [phone] F: [phone] Subjective Date of service: 01/24/21 Interval history: Afebrile, leukopenic at 2.7. 2.2% parasitemia with Plasmodium falciparum Objective - Exam Narrative Exam: Physical exam deferred to reduce risk of transmission of COVID-19. Please refer to primary team's note. - Constitutional Vitals: Vital Signs Temp Pulse Resp BP Pulse Ox 98.3 F 99 H 16 107/72 100 01/24/21 11:05 01/24/21 11:05 01/24/21 11:05 01/24/21 11:05 01/24/21 11:05 Temperature -Last 24 Hours Temperature 98.3 F Temperature 99.6 F Temperature 98.9 F Temperature 98.1 F - Labs CBC & Chem 7: 01/24/21 06:45 01/24/21 06:45 Labs: Abnormal lab results 01/24/21 01/24/21 Range/Units 06:45 06:45 WBC 2.7 L (4.5-11.0) K/mm3 Hct 30.1 L (30.3-42.9) % MCH 27 L (28-32) pg Sodium 136 L (137-145) mmol/L Potassium 3.0 L (3.6-5.0) mmol/L Chloride 97.8 L (98-107) mmol/L Carbon Dioxide 31 H (22-30) mmol/L Calcium 8.0 L D (8.4-10.2) mg/dL
[2021-01-24 15:45] LABS: Band Neutrophils # (Manual) 0.1 K/mm3; Platelet Estimate Consistent w Auto; RBC Morphology Normal; Total Cells Counted 100
[2021-01-24 15:54] LABS: Platelet Count 38 K/mm3 (140-440)
[2021-01-24] MEDS: ACETAMINOPHEN 325 MG TAB PO PRN (18:03)
[2021-01-25] MEDS: SODIUM CHLORIDE 0.9% 1000 ML 1,000 ML IV SCH ×2 (01:12→16:33)
--- NOTE | 2021-01-25 08:15 | Progress Note ---
Assessment and Plan Assessment and plan: --Febrile illness; T-max last 24 hours 601 F Antipyretics, IV fluids, cultures negative to date Secondary to malaria infection --Malaria; Plasmodium falciparum Smear positive, Plasmodium falciparum repeat smear to monitor improvement in parasitemia Malarone for 3 days completed per ID --PUI; High suspicion for COVID-19 Isolation contact and droplet Rizo PCR test indeterminate --Leukopenia; worsening WBC 3.7-3.0-2.7 Morning labs not done yet --Worsening thrombocytopenia; Unknown baseline level. Probably due to viral Versus parasitic infection, Closely monitor platelets Consider hematology consult --Monocytosis; Monocytes; 13 normal 0-7 Probably due to viral, parasitic infection Closely monitor --Hyponatremia; trending up sodium 130-136 Replenished with normal saline, closely monitor electrolytes --Hyperglycemia; blood sugars in the normal range --Possible UTI; cultures negative Rocephin discontinued --DVT prophylaxis; SCD No pharmacologic anticoagulation in view of thrombocytopenia --Morbid obesity; BMI 40.4 Diet modification exercise as tolerated and weight reduction When medically stable --Full CODE STATUS We will closely monitor the patient and adjust management as needed ID recommendations noted and appreciated Plan of care reviewed with the patient and her nurse 01/23/2021; Patient remains febrile, T-max last 24 hours 103 F Continue Malarone for total 3 days per ID Follow cultures Follow rizo PCR test 01/24/2021; patient is afebrile last 24 to 36 hours Patient is on Malarone for total 3 days, third dose today Worsening leukopenia and thrombocytopenia Will DC Lovenox in view of thrombocytopenia Closely monitor, follow ID recommendations 01/25/2021;smear positive Plasmodium falciparum Patient continues to be febrile T-max 101 F last 24 hours ID following History Interval history: I have seen and examined the patient at the bedside Patient's chart and medications reviewed Patient is febrile T-max last 24 hours is 101 F Patient says she feels better wants to go home Vital signs noted Hospitalist Physical - Constitutional Vitals: Temp Pulse Resp BP Pulse Ox 100.5 F H 95 H 18 94/59 96 01/25/21 04:46 01/25/21 04:46 01/25/21 04:46 01/25/21 04:46 01/25/21 04:46 General appearance: Present: no acute distress, well-nourished, obese (Morbidly obese), other (Afebrile ) - EENT Eyes: Present: PERRL, EOM intact - Neck Neck: Present: supple, normal ROM - Respiratory Respiratory effort: normal Respiratory: bilateral: diminished, negative: rales, rhonchi, wheezing - Cardiovascular Rhythm: regular Heart Sounds: Present: S1 & S2 - Extremities Extremities: no ischemia, No edema - Abdominal General gastrointestinal: soft, non-tender, non-distended, normal bowel sounds - Integumentary Integumentary: Present: clear, warm - Psychiatric Psychiatric: appropriate mood/affect, cooperative - Neurologic Neurologic: moves all extremities HEART Score - HEART Score Troponin: Troponin T < 0.010 ng/mL (0.00-0.029) 01/21/21 11:16 Results - Labs CBC & Chem 7: 01/24/21 06:45 01/25/21 07:27 Labs: Laboratory Last Values WBC 2.7 K/mm3 (4.5-11.0) L 01/24/21 06:45 RBC 3.76 M/mm3 (3.65-5.03) 01/24/21 06:45 Hgb 10.1 gm/dl (10.1-14.3) 01/24/21 06:45 Hct 30.1 % (30.3-42.9) L 01/24/21 06:45 MCV 80 fl (79-97) 01/24/21 06:45 MCH 27 pg (28-32) L 01/24/21 06:45 MCHC 34 % (30-34) 01/24/21 06:45 RDW 14.7 % (13.2-15.2) 01/24/21 06:45 Plt Count 38 K/mm3 (140-440) L 01/24/21 06:45 Lymph % (Auto) 27.4 % (13.4-35.0) 01/21/21 11:16 [place] % (Auto) 13.0 % (0.0-7.3) H 01/21/21 11:16 Eos % (Auto) 0.2 % (0.0-4.3) 01/21/21 11:16 Baso % (Auto) 0.8 % (0.0-1.8) 01/21/21 11:16 Lymph # (Auto) 1.0 K/mm3 (1.2-5.4) L 01/21/21 11:16 [place] # (Auto) 0.5 K/mm3 (0.0-0.8) 01/21/21 11:16 Eos # (Auto) 0.0 K/mm3 (0.0-0.4) 01/21/21 11:16 Baso # (Auto) 0.0 K/mm3 (0.0-0.1) 01/21/21 11:16 Add Manual Diff Complete 01/24/21 06:45 Total Counted 100 01/24/21 06:45 Seg Neutrophils % 58.6 % (40.0-70.0) 01/21/21 11:16 Seg Neuts % (Manual) 61.0 % (40.0-70.0) 01/24/21 06:45 Band Neutrophils % 2.0 % 01/24/21 06:45 Lymphocytes % (Manual) 29.0 % (13.4-35.0) 01/24/21 06:45 Monocytes % (Manual) 7.0 % (0.0-7.3) 01/24/21 06:45 Eosinophils % (Manual) 1.0 % (0.0-4.3) 01/24/21 06:45 Nucleated RBC % 1.0 % (0.0-0.9) H 01/24/21 06:45 Seg Neutrophils # 2.2 K/mm3 (1.8-7.7) 01/21/21 11:16 Seg Neutrophils # Man 1.6 K/mm3 (1.8-7.7) L 01/24/21 06:45 Band Neutrophils # 0.1 K/mm3 01/24/21 06:45 Lymphocytes # (Manual) 0.8 K/mm3 (1.2-5.4) L 01/24/21 06:45 Abs React Lymphs (Man) 0.0 K/mm3 01/24/21 06:45 Monocytes # (Manual) 0.2 K/mm3 (0.0-0.8) 01/24/21 06:45 Eosinophils # (Manual) 0.0 K/mm3 (0.0-0.4) 01/24/21 06:45 Basophils # (Manual) 0.0 K/mm3 (0.0-0.1) 01/24/21 06:45 Metamyelocytes # 0.0 K/mm3 01/24/21 06:45 Myelocytes # 0.0 K/mm3 01/24/21 06:45 Promyelocytes # 0.0 K/mm3 01/24/21 06:45 Blast Cells # 0.0 K/mm3 01/24/21 06:45 WBC Morphology Not Reportable 01/24/21 06:45 Hypersegmented Neuts Not Reportable 01/24/21 06:45 Hyposegmented Neuts Not Reportable 01/24/21 06:45 Hypogranular Neuts Not Reportable 01/24/21 06:45 Smudge Cells Not Reportable 01/24/21 06:45 Toxic Granulation Not Reportable 01/24/21 06:45 Toxic Vacuolation Not Reportable 01/24/21 06:45 Dohle Bodies Not Reportable 01/24/21 06:45 Pelger-Huet Anomaly Not Reportable 01/24/21 06:45 Guero Rods Not Reportable 01/24/21 06:45 Platelet Estimate Consistent w auto 01/24/21 06:45 Clumped Platelets Not Reportable 01/24/21 06:45 Plt Clumps, EDTA Not Reportable 01/24/21 06:45 Large Platelets Not Reportable 01/24/21 06:45 Giant Platelets Not Reportable 01/24/21 06:45 Platelet Satelliting Not Reportable 01/24/21 06:45 Plt Morphology Comment Not Reportable 01/24/21 06:45 RBC Morphology Normal 01/24/21 06:45 Dimorphic RBCs Not Reportable 01/24/21 06:45 Polychromasia Not Reportable 01/24/21 06:45 Hypochromasia Not Reportable 01/24/21 06:45 Poikilocytosis Not Reportable 01/24/21 06:45 Anisocytosis Not Reportable 01/24/21 06:45 Microcytosis Not Reportable 01/24/21 06:45 Macrocytosis Not Reportable 01/24/21 06:45 Spherocytes Not Reportable 01/24/21 06:45 Pappenheimer Bodies Not Reportable 01/24/21 06:45 Sickle Cells Not Reportable 01/24/21 06:45 Target Cells Not Reportable 01/24/21 06:45 Tear Drop Cells Not Reportable 01/24/21 06:45 Ovalocytes Not Reportable 01/24/21 06:45 Helmet Cells Not Reportable 01/24/21 06:45 [place] Bodies Not Reportable 01/24/21 06:45 [place] Rings Not Reportable 01/24/21 06:45 Matt Cells Not Reportable 01/24/21 06:45 Bite Cells Not Reportable 01/24/21 06:45 Crenated Cell Not Reportable 01/24/21 06:45 Elliptocytes Not Reportable 01/24/21 06:45 Acanthocytes (Spur) Not Reportable 01/24/21 06:45 Rouleaux Not Reportable 01/24/21 06:45 Hemoglobin C Crystals Not Reportable 01/24/21 06:45 Schistocytes Not Reportable 01/24/21 06:45 Malaria parasites Not Reportable 01/24/21 06:45 ESR 46 mm/Hr (0-20) 01/22/21 05:41 Azar Bodies Not Reportable 01/24/21 06:45 Hem Pathologist Commnt No 01/24/21 06:45 PT 15.1 Sec. (12.2-14.9) H 01/22/21 03:10 INR 1.13 (0.87-1.13) 01/22/21 03:10 APTT 29.2 Sec. (24.2-36.6) 01/22/21 03:10 Sodium 136 mmol/L (137-145) L 01/24/21 06:45 Potassium 3.0 mmol/L (3.6-5.0) L 01/24/21 06:45 Chloride 97.8 mmol/L (98-107) L 01/24/21 06:45 Carbon Dioxide 31 mmol/L (22-30) H 01/24/21 06:45 Anion Gap 10 mmol/L 01/24/21 06:45 BUN 8 mg/dL (7-17) 01/24/21 06:45 Creatinine 0.6 mg/dL (0.6-1.2) 01/24/21 06:45 Estimated GFR > 60 ml/min 01/24/21 06:45 BUN/Creatinine Ratio 13 % 01/24/21 06:45 Glucose 74 mg/dL (65-100) 01/24/21 06:45 Lactic Acid 1.80 mmol/L (0.7-2.0) 01/21/21 11:16 Calcium 8.0 mg/dL (8.4-10.2) L D 01/24/21 06:45 Magnesium 2.20 mg/dL (1.7-2.3) 01/24/21 06:45 Total Bilirubin 1.40 mg/dL (0.1-1.2) H 01/21/21 11:16 AST 40 units/L (5-40) 01/21/21 11:16 ALT 42 units/L (7-56) 01/21/21 11:16 Alkaline Phosphatase 67 units/L (35-129) 01/21/21 11:16 Lactate Dehydrogenase 809 units/L (91-180) H 01/22/21 05:41 Troponin T < 0.010 ng/mL (0.00-0.029) 01/21/21 11:16 Total Protein 7.9 g/dL (6.3-8.2) 01/21/21 11:16 Albumin 3.7 g/dL (3.9-5) L 01/21/21 11:16 Albumin/Globulin Ratio 0.9 % 01/21/21 11:16 Lipase 27 units/L (13-60) 01/21/21 11:16 HCG, Qual Negative (Negative) 01/21/21 11:16 Urine Color Chloe (Yellow) 01/22/21 03:03 Urine Turbidity Slightly-cloudy (Clear) 01/22/21 03:03 Urine pH 5.0 (5.0-7.0) 01/22/21 03:03 Ur Specific [place] 1.023 (1.003-1.030) 01/22/21 03:03 Urine Protein 100 mg/dl mg/dL (Negative) 01/22/21 03:03 Urine Glucose (UA) Neg mg/dL (Negative) 01/22/21 03:03 Urine Ketones Neg mg/dL (Negative) 01/22/21 03:03 Urine Blood Sm (Negative) 01/22/21 03:03 Urine Nitrite Neg (Negative) 01/22/21 03:03 Urine Bilirubin Neg (Negative) 01/22/21 03:03 Urine Urobilinogen 4.0 mg/dL (<2.0) 01/22/21 03:03 Ur Leukocyte Esterase Tr (Negative) 01/22/21 03:03 Urine WBC (Auto) 11.0 /HPF (0.0-6.0) H 01/22/21 03:03 Urine RBC (Auto) 4.0 /HPF (0.0-6.0) 01/22/21 03:03 U Epithel Cells (Auto) < 1.0 /HPF (0-13.0) 01/22/21 03:03 Hyaline Casts 1 /LPF 01/22/21 03:03 Urine Mucus 2+ /HPF 01/22/21 03:03 Coronavirus (PCR) Indeterminate (Negative) 01/22/21 Unknown Monoscreen Negative (Negative) 01/22/21 05:42 HIV 1&2 Antibody Rapid Non react (Non React) 01/22/21 05:41 HIV P24 Antigen Non react (Non React) 01/22/21 05:41 Schistocytes Smear Rare 01/22/21 03:10 Microbiology: Microbiology 01/22/21 Unknown Blood - Peripheral/Venous Parasite Direct Smear - Final 01/21/21 11:16 Peripheral/Venous Blood Culture - Preliminary NO GROWTH AFTER 72 HOURS 01/21/21 11:16 Peripheral/Venous Blood Culture - Preliminary NO GROWTH AFTER 72 HOURS 01/22/21 03:03 Urine,Clean Catch Urine Culture - Final Garcia/IV: Voiding Method Toilet Active Medications - Current Medications Current Medications: Generic Name Dose Route Start Last Admin Trade Name Freq PRN Reason Stop Dose Admin Acetaminophen 650 mg 01/22/21 08:06 01/24/21 18:03 Acetaminophen 325 Mg Tab PO 650 mg Q4H PRN Administration Pain, Mild (1-3) Amlodipine Besylate 5 mg 01/24/21 10:00 01/24/21 11:06 Amlodipine 5 Mg Tab PO 5 mg QDAY WINIFRED Administration Hydralazine HCl 10 mg 01/22/21 08:23 Hydralazine 20 Mg/1 Ml Inj IV Q4HR PRN Hypertension Sodium Chloride 1,000 mls @ 100 mls/hr 01/22/21 08:15 01/25/21 01:12 Nacl 0.9% 1000 Ml IV 100 mls/hr DIRECT WINIFRED Administration Losartan Potassium 50 mg 01/24/21 10:00 01/24/21 11:06 Losartan 50 Mg Tab PO 50 mg QDAY WINIFRED Administration Pantoprazole Sodium 40 mg 01/23/21 09:00 01/24/21 11:07 Pantoprazole 40 Mg Tab PO 40 mg QDAC WINIFRED Administration Zolpidem Tartrate 5 mg 01/22/21 16:13 Zolpidem 5 Mg Tab PO QHS PRN Sleep
[2021-01-25 10:01] LABS: Alanine Aminotransferase 27 units/L (7-56); Blood Urea Nitrogen 5 mg/dL (7-17); Calcium 7.8 mg/dL (8.4-10.2); Hemolysis Index 0
[2021-01-25 10:15] LABS: BUN/Creatinine Ratio 7
[2021-01-25] MEDS: PANTOPRAZOLE 40 MG TAB PO SCH (10:44)
[2021-01-25] MEDS: LOSARTAN 50 MG TAB PO SCH (10:44)
[2021-01-25] MEDS: amLODIPine 5 MG TAB PO SCH (10:44)
--- NOTE | 2021-01-25 13:38 | Progress Note ---
Assessment and Plan Cultures: Blood culture01/22/2021 pending HIV: negative COVID PCR: negative. Blood parasite smear: positive. A/P: 50 yo F PMHx HTN, recently arrived from [place] admitted with sepsis possibly secondary to malaria. #Acute sepsis: with fevers, tachycardia. Secondary to malaria. Patient started but did not complete a malaria vaccination trial in [place]. #Malaria: 2.2% parasitemia with Plasmodium falciparum. Liver dysfunction resolve d. Ongoing fevers. #Thrombocytopenia: likely secondary to sepsis and malaria. Stable, improved tod ay. Recs: -Smear sent out for parasite quantification and identification -Completed 3 days Malarone. -repeat smear today to ensure declining parasitemia given fevers. -Continue to trend platelets to ensure improvement. Thank you for the consult, we will continue to follow. Pradeep Ritchie MD [facility] ([facility]) O: [phone] F: [phone] Subjective Date of service: 01/25/21 Interval history: Febrile overnight to 101.6. platelets improved somewhat. Completed malarone. Objective - Exam Narrative Exam: Physical Exam: Constitutional: Alert, cooperative. No acute distress Head, Ears, Nose: Normocephalic, atraumatic. Eyes: Conjunctivae/corneas clear. No icterus. No ptosis. Neck: Supple, no meningeal signs Oral: dentition fair, no thrush Cardiovascular: S1, S2 normal. Respiratory: Good air entry, clear to auscultation bilaterally GI: Soft, non-tender; bowel sounds normal. No peritoneal signs. Musculoskeletal: No pedal edema, no cyanosis. Skin: No rash or abscess Hem/Lymphatic: No palpable cervical or supraclavicular nodes. No lymphangitis Psych: Mood ok. Affect normal Neurological: Awake, alert, oriented. No gross abnormality - Constitutional Vitals: Vital Signs Temp Pulse Resp BP Pulse Ox 98.5 F 93 H 24 108/79 100 01/25/21 12:14 01/25/21 12:14 01/25/21 12:14 01/25/21 12:14 01/25/21 12:14 Temperature -Last 24 Hours Temperature 98.5 F Temperature 100.5 F Temperature 99.9 F Temperature 101.6 F - Labs CBC & Chem 7: 01/24/21 06:45 01/25/21 07:27 Labs: Abnormal lab results 01/24/21 01/25/21 Range/Units 06:45 07:27 Plt Count 38 L (140-440) K/mm3 Nucleated RBC % 1.0 H (0.0-0.9) % Seg Neutrophils # Man 1.6 L (1.8-7.7) K/mm3 Lymphocytes # (Manual) 0.8 L (1.2-5.4) K/mm3 Sodium 136 L (137-145) mmol/L BUN 5 L (7-17) mg/dL Calcium 7.8 L (8.4-10.2) mg/dL Total Protein 5.6 L D (6.3-8.2) g/dL Albumin 3.0 L (3.9-5) g/dL
--- NOTE | 2021-01-25 14:29 | Progress Note ---
Assessment and Plan Assessment and plan: --Febrile illness; T-max last 24 hours 601 F Antipyretics, IV fluids, cultures negative to date Secondary to malaria infection --Malaria; Plasmodium falciparum Smear positive, Plasmodium falciparum Follow repeat smear to monitor improvement in parasitemia Malarone for 3 days completed per ID --PUI; COVID-19 test negative 01/24/2021 DC isolation --Leukopenia; worsening WBC 3.7-3.0-2.7 Morning labs not done yet --Thrombocytopenia; slightly improved Probably due to parasitic infection Closely monitor --Hyponatremia; trending up sodium 130-136 Replenished with normal saline, closely monitor electrolytes --Possible UTI; cultures negative Rocephin discontinued --DVT prophylaxis; SCD No pharmacologic anticoagulation in view of thrombocytopenia --Morbid obesity; BMI 40.4 Diet modification exercise as tolerated and weight reduction When medically stable --Full CODE STATUS We will closely monitor the patient and adjust management as needed ID recommendations noted and appreciated Plan of care reviewed with the patient and her nurse 01/23/2021; Patient remains febrile, T-max last 24 hours 103 F Continue Malarone for total 3 days per ID Follow cultures Follow rivas PCR test 01/24/2021; patient is afebrile last 24 to 36 hours Patient is on Malarone for total 3 days, third dose today Worsening leukopenia and thrombocytopenia Will DC Lovenox in view of thrombocytopenia Closely monitor, follow ID recommendations 01/25/2021;smear positive Plasmodium falciparum Patient continues to be febrile T-max 101 F last 24 hours ID following 01/26/2021; Patient is afebrile last 24 hours, repeat malaria smear pending Continue current management, follow ID recommendations Hospitalist Physical - Constitutional Vitals: Temp Pulse Resp BP Pulse Ox 98.5 F 93 H 24 108/79 100 01/25/21 12:14 01/25/21 12:14 01/25/21 12:14 01/25/21 12:14 01/25/21 12:14 General appearance: Present: no acute distress, well-nourished, obese (Morbidly obese), other (Afebrile ) HEART Score - HEART Score Troponin: Troponin T < 0.010 ng/mL (0.00-0.029) 01/21/21 11:16 Results - Labs CBC & Chem 7: 01/25/21 14:29 01/25/21 07:27 Labs: Laboratory Last Values WBC 2.7 K/mm3 (4.5-11.0) L 01/24/21 06:45 RBC 3.76 M/mm3 (3.65-5.03) 01/24/21 06:45 Hgb 10.1 gm/dl (10.1-14.3) 01/24/21 06:45 Hct 30.1 % (30.3-42.9) L 01/24/21 06:45 MCV 80 fl (79-97) 01/24/21 06:45 MCH 27 pg (28-32) L 01/24/21 06:45 MCHC 34 % (30-34) 01/24/21 06:45 RDW 14.7 % (13.2-15.2) 01/24/21 06:45 Plt Count 38 K/mm3 (140-440) L 01/24/21 06:45 Lymph % (Auto) 27.4 % (13.4-35.0) 01/21/21 11:16 [place] % (Auto) 13.0 % (0.0-7.3) H 01/21/21 11:16 Eos % (Auto) 0.2 % (0.0-4.3) 01/21/21 11:16 Baso % (Auto) 0.8 % (0.0-1.8) 01/21/21 11:16 Lymph # (Auto) 1.0 K/mm3 (1.2-5.4) L 01/21/21 11:16 [place] # (Auto) 0.5 K/mm3 (0.0-0.8) 01/21/21 11:16 Eos # (Auto) 0.0 K/mm3 (0.0-0.4) 01/21/21 11:16 Baso # (Auto) 0.0 K/mm3 (0.0-0.1) 01/21/21 11:16 Add Manual Diff Complete 01/24/21 06:45 Total Counted 100 01/24/21 06:45 Seg Neutrophils % 58.6 % (40.0-70.0) 01/21/21 11:16 Seg Neuts % (Manual) 61.0 % (40.0-70.0) 01/24/21 06:45 Band Neutrophils % 2.0 % 01/24/21 06:45 Lymphocytes % (Manual) 29.0 % (13.4-35.0) 01/24/21 06:45 Monocytes % (Manual) 7.0 % (0.0-7.3) 01/24/21 06:45 Eosinophils % (Manual) 1.0 % (0.0-4.3) 01/24/21 06:45 Nucleated RBC % 1.0 % (0.0-0.9) H 01/24/21 06:45 Seg Neutrophils # 2.2 K/mm3 (1.8-7.7) 01/21/21 11:16 Seg Neutrophils # Man 1.6 K/mm3 (1.8-7.7) L 01/24/21 06:45 Band Neutrophils # 0.1 K/mm3 01/24/21 06:45 Lymphocytes # (Manual) 0.8 K/mm3 (1.2-5.4) L 01/24/21 06:45 Abs React Lymphs (Man) 0.0 K/mm3 01/24/21 06:45 Monocytes # (Manual) 0.2 K/mm3 (0.0-0.8) 01/24/21 06:45 Eosinophils # (Manual) 0.0 K/mm3 (0.0-0.4) 01/24/21 06:45 Basophils # (Manual) 0.0 K/mm3 (0.0-0.1) 01/24/21 06:45 Metamyelocytes # 0.0 K/mm3 01/24/21 06:45 Myelocytes # 0.0 K/mm3 01/24/21 06:45 Promyelocytes # 0.0 K/mm3 01/24/21 06:45 Blast Cells # 0.0 K/mm3 01/24/21 06:45 WBC Morphology Not Reportable 01/24/21 06:45 Hypersegmented Neuts Not Reportable 01/24/21 06:45 Hyposegmented Neuts Not Reportable 01/24/21 06:45 Hypogranular Neuts Not Reportable 01/24/21 06:45 Smudge Cells Not Reportable 01/24/21 06:45 Toxic Granulation Not Reportable 01/24/21 06:45 Toxic Vacuolation Not Reportable 01/24/21 06:45 Dohle Bodies Not Reportable 01/24/21 06:45 Pelger-Huet Anomaly Not Reportable 01/24/21 06:45 Guero Rods Not Reportable 01/24/21 06:45 Platelet Estimate Consistent w auto 01/24/21 06:45 Clumped Platelets Not Reportable 01/24/21 06:45 Plt Clumps, EDTA Not Reportable 01/24/21 06:45 Large Platelets Not Reportable 01/24/21 06:45 Giant Platelets Not Reportable 01/24/21 06:45 Platelet Satelliting Not Reportable 01/24/21 06:45 Plt Morphology Comment Not Reportable 01/24/21 06:45 RBC Morphology Normal 01/24/21 06:45 Dimorphic RBCs Not Reportable 01/24/21 06:45 Polychromasia Not Reportable 01/24/21 06:45 Hypochromasia Not Reportable 01/24/21 06:45 Poikilocytosis Not Reportable 01/24/21 06:45 Anisocytosis Not Reportable 01/24/21 06:45 Microcytosis Not Reportable 01/24/21 06:45 Macrocytosis Not Reportable 01/24/21 06:45 Spherocytes Not Reportable 01/24/21 06:45 Pappenheimer Bodies Not Reportable 01/24/21 06:45 Sickle Cells Not Reportable 01/24/21 06:45 Target Cells Not Reportable 01/24/21 06:45 Tear Drop Cells Not Reportable 01/24/21 06:45 Ovalocytes Not Reportable 01/24/21 06:45 Helmet Cells Not Reportable 01/24/21 06:45 [place] Bodies Not Reportable 01/24/21 06:45 [place] Rings Not Reportable 01/24/21 06:45 Matt Cells Not Reportable 01/24/21 06:45 Bite Cells Not Reportable 01/24/21 06:45 Crenated Cell Not Reportable 01/24/21 06:45 Elliptocytes Not Reportable 01/24/21 06:45 Acanthocytes (Spur) Not Reportable 01/24/21 06:45 Rouleaux Not Reportable 01/24/21 06:45 Hemoglobin C Crystals Not Reportable 01/24/21 06:45 Schistocytes Not Reportable 01/24/21 06:45 Malaria parasites Not Reportable 01/24/21 06:45 ESR 46 mm/Hr (0-20) 01/22/21 05:41 Azar Bodies Not Reportable 01/24/21 06:45 Hem Pathologist Commnt No 01/24/21 06:45 PT 15.1 Sec. (12.2-14.9) H 01/22/21 03:10 INR 1.13 (0.87-1.13) 01/22/21 03:10 APTT 29.2 Sec. (24.2-36.6) 01/22/21 03:10 Sodium 136 mmol/L (137-145) L 01/25/21 07:27 Potassium 3.6 mmol/L (3.6-5.0) 01/25/21 07:27 Chloride 101.4 mmol/L (98-107) 01/25/21 07:27 Carbon Dioxide 26 mmol/L (22-30) 01/25/21 07:27 Anion Gap 12 mmol/L 01/25/21 07:27 BUN 5 mg/dL (7-17) L 01/25/21 07:27 Creatinine 0.7 mg/dL (0.6-1.2) 01/25/21 07:27 Estimated GFR > 60 ml/min 01/25/21 07:27 BUN/Creatinine Ratio 7 % 01/25/21 07:27 Glucose 94 mg/dL (65-100) 01/25/21 07:27 Lactic Acid 1.80 mmol/L (0.7-2.0) 01/21/21 11:16 Calcium 7.8 mg/dL (8.4-10.2) L 01/25/21 07:27 Magnesium 2.20 mg/dL (1.7-2.3) 01/24/21 06:45 Total Bilirubin 0.80 mg/dL (0.1-1.2) 01/25/21 07:27 AST 27 units/L (5-40) 01/25/21 07:27 ALT 27 units/L (7-56) 01/25/21 07:27 Alkaline Phosphatase 45 units/L (35-129) 01/25/21 07:27 Lactate Dehydrogenase 809 units/L (91-180) H 01/22/21 05:41 Troponin T < 0.010 ng/mL (0.00-0.029) 01/21/21 11:16 Total Protein 5.6 g/dL (6.3-8.2) L D 01/25/21 07:27 Albumin 3.0 g/dL (3.9-5) L 01/25/21 07:27 Albumin/Globulin Ratio 1.2 % 01/25/21 07:27 Lipase 27 units/L (13-60) 01/21/21 11:16 HCG, Qual Negative (Negative) 01/21/21 11:16 Urine Color Chloe (Yellow) 01/22/21 03:03 Urine Turbidity Slightly-cloudy (Clear) 01/22/21 03:03 Urine pH 5.0 (5.0-7.0) 01/22/21 03:03 Ur Specific [place] 1.023 (1.003-1.030) 01/22/21 03:03 Urine Protein 100 mg/dl mg/dL (Negative) 01/22/21 03:03 Urine Glucose (UA) Neg mg/dL (Negative) 01/22/21 03:03 Urine Ketones Neg mg/dL (Negative) 01/22/21 03:03 Urine Blood Sm (Negative) 01/22/21 03:03 Urine Nitrite Neg (Negative) 01/22/21 03:03 Urine Bilirubin Neg (Negative) 01/22/21 03:03 Urine Urobilinogen 4.0 mg/dL (<2.0) 01/22/21 03:03 Ur Leukocyte Esterase Tr (Negative) 01/22/21 03:03 Urine WBC (Auto) 11.0 /HPF (0.0-6.0) H 01/22/21 03:03 Urine RBC (Auto) 4.0 /HPF (0.0-6.0) 01/22/21 03:03 U Epithel Cells (Auto) < 1.0 /HPF (0-13.0) 01/22/21 03:03 Hyaline Casts 1 /LPF 01/22/21 03:03 Urine Mucus 2+ /HPF 01/22/21 03:03 Coronavirus (PCR) Negative (Negative) 01/24/21 Unknown Monoscreen Negative (Negative) 01/22/21 05:42 HIV 1&2 Antibody Rapid Non react (Non React) 01/22/21 05:41 HIV P24 Antigen Non react (Non React) 01/22/21 05:41 Schistocytes Smear Rare 01/22/21 03:10 Microbiology: Microbiology 01/21/21 11:16 Peripheral/Venous Blood Culture - Preliminary NO GROWTH AFTER 4 DAYS 01/21/21 11:16 Peripheral/Venous Blood Culture - Preliminary NO GROWTH AFTER 4 DAYS 01/22/21 Unknown Blood - Peripheral/Venous Parasite Direct Smear - Final 01/22/21 03:03 Urine,Clean Catch Urine Culture - Final Garcia/IV: Voiding Method Toilet Active Medications - Current Medications Current Medications: Generic Name Dose Route Start Last Admin Trade Name Freq PRN Reason Stop Dose Admin Acetaminophen 650 mg 01/22/21 08:06 01/24/21 18:03 Acetaminophen 325 Mg Tab PO 650 mg Q4H PRN Administration Pain, Mild (1-3) Amlodipine Besylate 5 mg 01/24/21 10:00 01/25/21 10:44 Amlodipine 5 Mg Tab PO 5 mg QDAY WINIFRED Administration Hydralazine HCl 10 mg 01/22/21 08:23 Hydralazine 20 Mg/1 Ml Inj IV Q4HR PRN Hypertension Sodium Chloride 1,000 mls @ 100 mls/hr 01/22/21 08:15 01/25/21 01:12 Nacl 0.9% 1000 Ml IV 100 mls/hr DIRECT WINIFRED Administration Losartan Potassium 50 mg 01/24/21 10:00 01/25/21 10:44 Losartan 50 Mg Tab PO 50 mg QDAY WINIFRED Administration Pantoprazole Sodium 40 mg 01/23/21 09:00 01/25/21 10:44 Pantoprazole 40 Mg Tab PO 40 mg QDAC WINIFRED Administration Zolpidem Tartrate 5 mg 01/22/21 16:13 Zolpidem 5 Mg Tab PO QHS PRN Sleep
[2021-01-25 15:17] LABS: Hematocrit 27.6 % (30.3-42.9); Hemoglobin 9.2 gm/dl (10.1-14.3); Mean Corpuscular HGB Conc 33 % (30-34); Mean Corpuscular Volume 80 fl (79-97); Red Blood Count 3.44 M/mm3 (3.65-5.03); Red Cell Distribution Width 15.2 % (13.2-15.2)
[2021-01-25 15:18] LABS: Platelet Count 61 K/mm3 (140-440)
--- NOTE | 2021-01-25 18:53 | Electrocardiograph Report ---
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
[2021-01-25 19:01] LABS: Band Neutrophils # (Manual) 0.1 K/mm3; Hypochromasia Few; Platelet Estimate Consistent w Auto; Total Cells Counted 100
[2021-01-26] MEDS: SODIUM CHLORIDE 0.9% 1000 ML 1,000 ML IV SCH (02:24)
[2021-01-26] MEDS: PANTOPRAZOLE 40 MG TAB PO SCH (06:29)
[2021-01-26 10:34] VITALS: BP 102/69
[2021-01-26] MEDS: amLODIPine 5 MG TAB PO SCH (10:34)
[2021-01-26] MEDS: LOSARTAN 50 MG TAB PO SCH (10:34)
--- NOTE | 2021-01-26 11:55 | Discharge Summary ---
Providers - Providers Date of Admission: 01/22/21 06:51 Date of discharge: 01/26/21 Attending physician: REBA TANG 01/22/21 06:54 Consult to Physician [CONS] Stat Comment: Consulting Provider: SINDY FALCON Physician Instructions: Reason For Exam: infectious disease Primary care physician: [facility] Hospitalization Reason for admission: Febrile illness/possible malaria Condition: Stable Pertinent studies: CT head Chest x-ray Blood smear positive for Plasmodium falciparum Hospital course: 50-year-old female patient with significant past medical history of hypertension was admitted through emergency room with headache myalgia and dizziness of 5 days duration Patient recently came from [facility] on 01/11/2021, reports that she received incomplete malaria vaccine series prior to leaving for the [facility]. On initial evaluation patient has very high fever of 103 F with chills, ID evaluated empirically managed with Malarone. Blood smear positive for Plasmodium falciparum, ID recommended 3 days of Malarone. Has mild symptoms and urinalysis for UTI received 3 to 4 days of IV antibiotics with significant improvement, Today patient is comfortable afebrile last 24 hours, vital signs stable Physical examination prior to discharge no new changes Patient had mild leukopenia, mild thrombocytopenia some electrolyte imbalances which all were corrected. Thrombocytopenia neutropenia is gradually improving Today she has no new complaints, ID cleared for discharge and follow-up with her own primary care physician in 1 to 2 weeks or as needed Patient is hemodynamically and clinically stable at discharge Discharge diagnosis; --Febrile illness; T-max last 24 hours 601 F Antipyretics, IV fluids, cultures negative to date Secondary to malaria infection --Malaria; Plasmodium falciparum Smear positive, Plasmodium falciparum Follow repeat smear to monitor improvement in parasitemia Malarone for 3 days completed per ID --PUI; COVID-19 test negative 01/24/2021 DC isolation --Leukopenia; worsening WBC 3.7-3.0-2.7 Morning labs not done yet --Thrombocytopenia; slightly improved Probably due to parasitic infection Closely monitor --Hyponatremia; trending up sodium 130-136 Replenished with normal saline, closely monitor electrolytes --Possible UTI; cultures negative Rocephin discontinued --DVT prophylaxis; SCD No pharmacologic anticoagulation in view of thrombocytopenia --Morbid obesity; BMI 40.4 Diet modification exercise as tolerated and weight reduction When medically stable Stable at discharge Disposition: DC-01 TO HOME OR SELFCARE Final Discharge Diagnosis (Prints w/discharge instructions): Febrile illness. Falciparum malaria. COVID-19 test negative. Thrombocytopenia. Leukopenia. Hyponatremia. UTI resolved. Morbid obesity BMI 40.4 Time spent for discharge: 35 min Core Measure Documentation - Palliative Care Palliative Care/ Comfort Measures: Not Applicable - Core Measures Any of the following diagnoses?: history only Exam - Constitutional Vitals: Temp Pulse Resp BP Pulse Ox 99.4 F 88 16 102/69 99 01/26/21 10:19 01/26/21 10:34 01/26/21 10:19 01/26/21 10:34 01/26/21 10:19 General appearance: Present: no acute distress, well-nourished - EENT Eyes: Present: PERRL, EOM intact - Neck Neck: Present: supple, normal ROM - Respiratory Respiratory effort: normal Respiratory: bilateral: diminished, negative: rales, rhonchi, wheezing - Cardiovascular Rhythm: regular Heart Sounds: Present: S1 & S2 - Extremities Extremities: no ischemia, No edema - Abdominal General gastrointestinal: Present: soft, non-tender, non-distended, normal bowel sounds - Integumentary Integumentary: Present: clear, warm - Musculoskeletal Musculoskeletal: strength equal bilaterally - Psychiatric Psychiatric: appropriate mood/affect, cooperative - Neurologic Neurologic: CNII-XII intact, moves all extremities Plan Activity: no restrictions Diet: regular Additional Instructions: Advised to see your primary care physician in 1 to 2 weeks. If you have worsening symptoms contact MD or go to emergency room Follow up with: PRIMARY CARE,MD [Primary Care Provider] - 3-5 Days Prescriptions: amLODIPine 5 mg PO DAILY #30
--- NOTE | 2021-01-26 12:24 | Progress Note ---
Assessment and Plan Cultures: Blood culture01/22/2021 no growth today HIV: negative COVID PCR: negative. Blood parasite smear: Plasmodium A/P: 50 yo F PMHx HTN, recently arrived from [place] admitted with sepsis pos sibly secondary to malaria. #Acute sepsis: Fever resolved. Secondary to malaria. Patient started but did not complete a malaria vaccination trial in [place]. #Malaria: 2.2% parasitemia with Plasmodium falciparum. Liver dysfunction resolved. Ongoing fevers. #Anemia/thrombocytopenia: likely secondary to sepsis and malaria. Stable, improved today. Recs: -Follow-up smear out which was sent 01/25/2021 -Completed 3 days Malarone. -Patient has her flight back to [facility] today at 8 PM, she is clinically stable to be discharged and follow-up with her primary care physician as soon as she arrives there. Discussed with attending MD [facility] ([facility]) Office [phone] Subjective Date of service: 01/26/21 Principal diagnosis: Malaria Interval history: Patient feels much better. No fever for 24 hours. Denies any abdominal pain, nausea, vomiting, diarrhea. Objective - Exam Narrative Exam: General appearance: Alert in NAD pleasant Eyes: anicteric sclerae, moist conjunctivae; no lid-lag; PERRLA HENT: Normocephalic, Atraumatic; normal external ears, nares open, oropharynx clear with moist mucous membranes and no oral thrush Neck: supple, tracheal midline, no JVD Lungs: CTA, with normal respiratory effort and no intercostal retractions CV: RRR no murmur Abdomen: Soft, non-tender; no masses or hepatosplenomegaly Extremities: no edema, no cyanosis Skin: No rash. Psych: no agitated Neuro: alert and oriented x 3. Moving all extermities - Constitutional Vitals: Vital Signs Temp Pulse Resp BP Pulse Ox 99.4 F 88 16 102/69 99 01/26/21 10:19 01/26/21 10:34 01/26/21 10:19 01/26/21 10:34 01/26/21 10:19 Temperature -Last 24 Hours Temperature 99.4 F Temperature 98.7 F Temperature 99.2 F Temperature 98.5 F - Labs CBC & Chem 7: 01/25/21 14:29 01/25/21 07:27 Labs: Abnormal lab results 01/25/21 Range/Units 14:29 WBC 2.7 L (4.5-11.0) K/mm3 RBC 3.44 L (3.65-5.03) M/mm3 Hgb 9.2 L (10.1-14.3) gm/dl Hct 27.6 L (30.3-42.9) % MCH 27 L (28-32) pg Plt Count 61 L (140-440) K/mm3 Monocytes % (Manual) 12.0 H (0.0-7.3) % Eosinophils % (Manual) 5.0 H (0.0-4.3) % Seg Neutrophils # Man 1.3 L (1.8-7.7) K/mm3 Lymphocytes # (Manual) 0.8 L (1.2-5.4) K/mm3
== END 2021-01-26 13:52 | disposition home or self-care (01) | DRG 872 ==
LOC: ED 09:28 → 3A 01-22 06:51
PROVIDERS: ADMIT Hospitalist; ATTEND Internal Medicine
DX: A41.9 Sepsis, unspecified organism (principal); E87.1 Hypo-osmolality and hyponatremia; B54 Unspecified malaria; Z68.41 Body mass index [BMI] 40.0-44.9, adult; D69.6 Thrombocytopenia, unspecified; Z20.822 Contact with and (suspected) exposure to COVID-19; I10 Essential (primary) hypertension; D72.819 Decreased white blood cell count, unspecified; D72.821 Monocytosis (symptomatic); R73.9 Hyperglycemia, unspecified; E66.01 Morbid (severe) obesity due to excess calories; Z71.3 Dietary counseling and surveillance; D64.9 Anemia, unspecified
CPT/HCPCS: 36415; 70450; 71046; 80048; 80053; 81001; 82140; 83615; 83690; 83735; 84484; 84703; 85007; 85025; 85027; 85610; 85652; 85730; 86308; 87040; 87086; 87207; 87806; 93005; 96365; G0378; C9113; J0696; J1650; J7030; U0003